=== PATIENT | female | born 1945 | race African-American/Black ===

== ENCOUNTER → 2016-11-16 | Outpatient (CLI) | payer MEDICARE ==
[~2016-11-16] MED LIST: COUMADIN1 MG PO; SYNTHROID0.1 MG PO
--- NOTE | ~2016-11-16 | NM22 ---
[facility] A Service of [facility] & [facility] [place] RADIOLOGY TEXT RESULTS PATIENT: DAVID CLAYTON LOCATION: [facility] : 45 UNIT #: [id number] AGE: [address]: Jair Izaguirre III, MD SEX: F ORDER DR: [id number] [facility] [place] [facility]. [place], [place] [address] [id number] O MR#: [id number] Acc #: [id number] NAME: DAVID CLAYTON : 1945 SEX: F STUDY DATE/TIME: 11/16/2016 9:03 UNIT: [facility] ROOM: STUDY DESCRIPTION: JAMES Hepatobiliary W GB Pharm Attending Physician: Jair Izaguirre III, M.D. Referring Physician: Jair Izaguirre III, M.D. Ordering Physician: Jair Izaguirre III, M.D. Primary Care Physician: Paxton Nichols M.D. MEDICAL IMAGING REPORT This report is preliminary unless electronic signature is present EXAM HIDA scan with CCK, 11/16/2016. HISTORY Right upper quadrant abdominal pain, abdominal bloating and early satiety with weight loss since September 2016. TECHNIQUE The patient received an intravenous injection of 6 mCi of technetium-99m Choletec for hepatobiliary imaging. 1 hour following the injection of the radiopharmaceutical, the patient received an intravenous injection of 1.4 mcg of Kinevac. FINDINGS There was homogeneous distribution of the radiotracer throughout the liver. Gallbladder activity was seen by 45 minutes post injection of the radiopharmaceutical. Following Kinevac injection, the gallbladder ejection fraction was 82.4% (normal is greater than 30%). IMPRESSION Normal HIDA scan with gallbladder ejection fraction of 82.4%. Dictated by... Sher Smyth M.D. THIS IS AN ELECTRONICALLY VERIFIED REPORT Sher Smyth M.D. at 11/17/2016 7:34 AM ARTURO/esa TD: 11/16/2016 11:31 [facility] A Service of [facility] & [facility] RADIOLOGY TEXT RESULTS PATIENT: DAVID CLAYTON LOCATION: [facility] : 45 UNIT #: [id number] AGE: [address]: Jair Izaguirre III, MD SEX: F ORDER DR: JOB #: [id number] MEDICAL IMAGING REPORT COPY
== END | disposition home or self-care (01) ==
LOC: CNUC 07:25
DX: R10.11 Right upper quadrant pain (principal)
CPT/HCPCS: 78227; A9537; J2805

== ENCOUNTER → 2017-01-30 | Outpatient (CLI) | payer MEDICARE | END | disposition home or self-care (01) | LOC: CSSDAY 10:00 | DX: M81.0 Age-related osteoporosis without current pathological fracture (principal) | CPT/HCPCS: 36415; 82310; 96372; J0897 ==